=== PATIENT | female | born 1930 | race Two or more races ===

== ENCOUNTER 2017-10-27 08:30 | Outpatient (CLI) | payer OTHER | END 2017-10-27 08:31 | disposition short-term general hospital (02) | LOC: AMBL 08:30 | PROVIDERS: ATTEND Internal Medicine | DX: R40.4 Transient alteration of awareness (principal); R53.1 Weakness; R06.9 Unspecified abnormalities of breathing; R41.0 Disorientation, unspecified; R40.2421 Glasgow coma scale score 9-12, in the field [EMT or ambulance]; J44.9 Chronic obstructive pulmonary disease, unspecified; Z99.81 Dependence on supplemental oxygen ==